=== PATIENT | female | born 1985 | race Caucasian/White ===

== ENCOUNTER 2022-12-04 10:36 | Day surgery (SDC) | payer BC ==
[~2022-12-04 10:36] MED LIST: Lactated Ringers 1,000 ML IV SCH
[2022-12-04] MEDS ORDERED: Propofol 200 MG/20 ML SDV ONE (11:07)
[2022-12-04] MEDS ORDERED: Lidocaine 2% 5 ML SDV ONE (11:07)
[2022-12-04] MEDS ORDERED: Phenylephrine HCl 0.5 MG/5 ML AMP ONE (11:29)
[2022-12-04 12:49] VITALS: BP 96/55; PULSE 61
== END 2022-12-04 12:23 | disposition home or self-care (01) ==
LOC: MW.SDS 10:36
PROVIDERS: ATTEND Surgery
DX: O99.612 Diseases of the digestive system complicating pregnancy, second trimester (principal); D12.3 Benign neoplasm of transverse colon; K62.1 Rectal polyp; K63.5 Polyp of colon; K59.09 Other constipation; O99.342 Other mental disorders complicating pregnancy, second trimester; F41.9 Anxiety disorder, unspecified; O99.352 Diseases of the nervous system complicating pregnancy, second trimester; G43.909 Migraine, unspecified, not intractable, without status migrainosus; Z79.899 Other long term (current) drug therapy; Z98.890 Other specified postprocedural states; Z3A.16 16 weeks gestation of pregnancy
CPT/HCPCS: 45380; J2370; J2704; J7120; 00811; J3490

== ENCOUNTER 2023-01-13 09:12 | Inpatient (IN) | payer BC ==
[2023-01-13] MEDS ORDERED: Promethazine 25 MG/ML SDV IM PRN (10:47)
[2023-01-13] MEDS ORDERED: fentaNYL 100 MCG/2 ML SDV IVPUSH ONE (11:00)
[2023-01-13] MEDS ORDERED: fentaNYL 100 MCG/2 ML SDV ONE (11:01)
[2023-01-13] MEDS ORDERED: Terbutaline 1 MG/ML SDV SUBCUT ONE (11:30)
[2023-01-13] MEDS ORDERED: Terbutaline 1 MG/ML SDV ONE (11:32)
[2023-01-13] MEDS ORDERED: Oxytocin/0.9 % Sodium Chloride 30 UNIT/500 ML BAG IV SCH (12:00)
[2023-01-13] MEDS ORDERED: Witch Hazel Medicated Pads 40/Jar TOP PRN (12:34)
[2023-01-13] MEDS ORDERED: oxyCODONE 5 MG Tab PO PRN (12:34)
[2023-01-13] MEDS ORDERED: Bisacodyl 10 MG Supp RECTAL PRN (12:34)
[2023-01-13] MEDS ORDERED: Ibuprofen 400 MG Tab PO PRN (12:34)
[2023-01-13] MEDS ORDERED: Ibuprofen 800 MG Tab PO PRN (12:34)
[2023-01-13] MEDS ORDERED: Lanolin 100% Cream 7 GM Tube TOP PRN (12:34)
[2023-01-13] MEDS ORDERED: Acetaminophen 500 MG Tab PO PRN ×2 (12:34)
[2023-01-13] MEDS ORDERED: Benzocaine/Menthol 20%-0.5% Spray 78 GM Cannister TOP PRN (12:34)
[2023-01-13] MEDS ORDERED: Docusate Sodium 100 MG Cap PO PRN (12:34)
[2023-01-13 14:16] LABS: HEMATOCRIT 32.3 % (37.0-47.0); HEMOGLOBIN 11.8 g/dL (12.0-16.0); MEAN CORPUSCULAR HEMOGLOBIN 31.8 pg (28.0-32.0); MEAN CORPUSCULAR HGB CONC 36.5 g/dL (32.0-36.0); MEAN CORPUSCULAR VOLUME 87.1 fL (83.0-99.0); MEAN PLATELET VOLUME 10.8 fL (9.4-12.3); PLATELET COUNT,PLT 161 K/uL (150-400); RED BLOOD CELL COUNT 3.71 M/uL (4.10-5.30); WHITE BLOOD CELL COUNT,WBC 20.25 K/uL (3.9-11.3)
[2023-01-13] MEDS ORDERED: Misoprostol 200 MCG Tab RECTAL ONE (16:30)
== END 2023-01-13 18:45 | disposition home or self-care (01) | DRG 560 ==
LOC: MW.OBCHECK 09:12 → MW.OB 10:32 → MW.OBCHECK 12:36 → MW.OB 12:36
PROVIDERS: ADMIT Obstetrics & Gynecology; ATTEND Obstetrics & Gynecology
PROC: 10E0XZZ Delivery of Products of Conception, External Approach (ICD-10-PCS; principal; 2023-01-13)
DX: O20.0 Threatened abortion (principal); Z3A.21 21 weeks gestation of pregnancy; Z37.1 Single stillbirth; O32.1XX0 Maternal care for breech presentation, not applicable or unspecified; O99.344 Other mental disorders complicating childbirth; F41.9 Anxiety disorder, unspecified
CPT/HCPCS: 36415; 59409; 76817; 76817-26; 85027; A9270-GY; J2550; J2590; J3010; J3105